=== PATIENT | female | born 1990 | race Caucasian/White ===

== ENCOUNTER 2017-11-15 13:48 | Emergency (ER) | payer MEDICAID | END 2017-11-15 15:18 | disposition home or self-care (01) | LOC: D.ER 13:48 | DX: J06.9 Acute upper respiratory infection, unspecified (principal) ==

== ENCOUNTER 2019-02-20 11:57 | Emergency (ER) | payer MEDICAID ==
[2019-02-20 12:07] VITALS: BMI 29.9
[2019-02-20 13:14] VITALS: BP 122/68
== END 2019-02-20 13:15 | disposition home or self-care (01) ==
LOC: D.ER 11:57
DX: S01.01XA Laceration without foreign body of scalp, initial encounter (principal); W22.8XXA Striking against or struck by other objects, initial encounter; Y93.89 Activity, other specified; Y92.89 Other specified places as the place of occurrence of the external cause

== ENCOUNTER 2019-03-02 14:13 | Emergency (ER) | payer MEDICAID ==
[~2019-03-02] VITALS: Ht 167.6 cm; Wt 79.5 kg
[2019-03-02 14:31] VITALS: BP 112/66; Ht 167.6 cm; Wt 79.5 kg
== END 2019-03-02 16:14 | disposition home or self-care (01) ==
LOC: D.ER 14:13
DX: S01.01XD Laceration without foreign body of scalp, subsequent encounter (principal); X58.XXXD Exposure to other specified factors, subsequent encounter; Z48.02 Encounter for removal of sutures